=== PATIENT | female | born 1970 | race Caucasian/White ===

== ENCOUNTER → 2023-12-13 08:09 | Outpatient (REF) | payer OTHER, SELFPAY | LOC: WDC 08:09 | PROVIDERS: ATTENDING PHYSICIAN Nurse Practitioner | DX: Z12.31 Encounter for screening mammogram for malignant neoplasm of breast (principal) | CPT/HCPCS: 77063; 77067 ==

== ENCOUNTER → 2024-09-11 08:15 | Outpatient (REF) | payer OTHER, SELFPAY | LOC: HWRAD 08:15 | PROVIDERS: ATTENDING PHYSICIAN Nurse Practitioner Adult Health; FAMILY PHYSICIAN Internal Medicine; REFERRING PHYSICIAN Obstetrics & Gynecology | DX: N95.0 Postmenopausal bleeding (principal) | CPT/HCPCS: 76830; 76856 ==

== ENCOUNTER → 2025-02-04 15:25 | Outpatient (REF) | payer OTHER, SELFPAY | LOC: WDC 15:25 | PROVIDERS: ATTENDING PHYSICIAN Nurse Practitioner Adult Health; FAMILY PHYSICIAN Internal Medicine | DX: Z12.31 Encounter for screening mammogram for malignant neoplasm of breast (principal) | CPT/HCPCS: 77063; 77067 ==

== ENCOUNTER 2025-06-16 11:26 | Emergency (ER) | payer OTHER, SELFPAY ==
[2025-06-16 11:40] VITALS: BP 182/108
[2025-06-16 15:48] VITALS: BMI 35.0
--- NOTE | 2025-06-16 15:51 | ED.GENMED ---
History of Present Illness
General
Chief Complaint: Breathing Problem
Source: patient
Exam Limitations: none
Time Seen by Provider: 06/16/25 15:24
Nursing documentation reviewed up to this point in time: agreed with
History of Present Illness
History of Present Illness:
Patient is a 54-year-old female with history of pulmonary emboli on Eliquis who presents to the emergency department for evaluation of chest pressure. Patient states that a few days ago she woke up in middle the night and had a cramping sensation
in her left lateral calf. She initially thought this may be secondary to dehydration however symptoms seemed to persist and then patient developed a minor pressure sensation in her mid chest yesterday while driving up to see her daughter at [place].
She denied any radiation of chest pressure into her back, arm, jaw. She denied any clear exertional or pleuritic component to symptoms. No associated fever, productive cough. She does report recent viral URI which is improving. No
lightheadedness/dizziness or syncopal events.
Given her history she became concerned about a possible PE and doubled her Eliquis dose last night. By this morning, patient states her symptoms are improved and she denies any current chest tightness or pain in her left lower extremity.
However�she did contact her molder bench who recommended evaluation in the emergency department given history of multiple PE.
No recent travel or recent surgeries. No exogenous hormone use.
Past History
Past History
ED Past Medical History: None
ED Past Surgical History: (1999, 2002, 2005)
Patient has exhibited threatening behavior?: No
Social History
Tobacco: Non-smoker
Alcohol: None
Drug: None
Personal:
Living: with family
Employment: Other (currently interviewing for jobs since being home with kids)
Family History
Family History: Diabetes
Review of Systems
Review of Systems
Allergies reviewed?: Yes
All Other Systems: ROS reviewed and negative except as documented in HPI and ROS
Phy Exam
Physical Exam
Physical Exam:
Vitals: Hypertensive, otherwise vital signs normal. Afebrile
General: Patient is well appearing, no acute distress. Nontoxic appearing
Skin: Warm and dry, no rashes or lesions
Head: Normocephalic, atraumatic
Eyes: Sclera nonicteric.
Throat: Protecting airway
Neck: Normal ROM, no cervical spine tenderness, no meningismus
Cardiac: Regular rate and rhythm, no murmurs. No reproducible chest wall tenderness. 2+ palpable radial pulses bilaterally
Pulm: Normal respiratory effort, no wheezes, rales, rhonchi heard on exam
Abdomen: No abdominal tenderness.
Extremities: No tenderness, erythema, or warmth of lower extremity. No edema of bilateral lower extremities with negative Homans' sign. 2+ palpable DP pulses bilaterally
Neuro: AAOx3. Grossly intact
Psychiatric: Normal affect.
Scores
Heart Failure Risk
Heart Failure Risk Score: Not Applicable
Course
Orders/Labs/Results
Orders:
Orders
06/16/25 11:40
EKG [Electrocardiogram (*1)] Urgent
Reason for Study: Shortness of Breath
EKG- Treatment ONCE
06/16/25 15:50
Periph Venous Lwr Ext Left US [US Periph Venous LOWER Ext LT] Urgent
Comment: hx DVT
Reason For Exam: LLE cramping/pain
06/16/25 15:59
Complete Blood Count/With Diff Urgent
Comprehensive Metabolic Panel Urgent
D-Dimer Urgent
Troponin I Urgent
06/16/25 15:59
06/16/25 15:59
Vital Signs
Initial and Last Documented VS:
Initial Vital Signs
Temp Pulse Resp BP Pulse Ox
98.3 F 84 18 182/108 98
06/16/25 11:40 06/16/25 11:40 06/16/25 11:40 06/16/25 11:40 06/16/25 11:40
Last Documented Vital Signs
Temp Pulse Resp BP Pulse Ox
98.3 F 66 24 148/91 98
06/16/25 11:40 06/16/25 16:15 06/16/25 16:15 06/16/25 16:03 06/16/25 16:01
MDM/Problems Addressed
Differential Diagnosis Includes:
Not limited to: Viral URI, muscle strain, acute dehydration, DVT, pulmonary embolism, etc.
MDM/Problems Addressed:
54-year-old female with history of PE currently anticoagulated on Eliquis who presents with concern of cramping in left lower extremity as well as brief episode of chest tightness yesterday which has resolved. No associated fever, productive cough,
or infectious symptoms. Given history � sent by molder bench to rule out PE. Patient is hypertensive with otherwise stable viital signs on arrival. Physical exam as above.
Patient very well appearing, in no distress and nontoxic appearing. Heart regular rate and rhythm. Lungs are clear bilaterally. No clinical evidence of DVT on exam or other abnormality of left lower extremity. Left lower extremity neurovascularly
intact.
Differential as above. Low clinical suspicion for ACS. Do not suspect infectious process. Will check labs, EKG, troponin, LLE ultrasound to r./o DVT given patient history. Very low suspicion of PE however will check d-dimer.
Update: EKG reveals normal sinus rhythm without the acute ischemic changes or evidence of arrhythmia. Labs without any abnormalities. Troponin undetectable. D-dimer negative. Ultrasound without evidence of DVT.
Patient has been completely asymptomatic in emergency department. Do not suspect PE or other emergent cardiac/pulmonary process. Patient very comfortable with discharge home and will follow up with her primary care/molder bench. Close return
precautions discussed. Advised to continue Eliquis as prescribed.
Chronic conditions affecting care:
Pulmonary embolism on Eliquis
Acute Exacerbation and/or Progression of Chronic Illness:
N/A
*Radiology
Radiology exam reviewed: radiology read reviewed
*Pulse Oximetry
SaO2: 98
Oxygen Mode of Delivery: Room air
Patient hypoxic: no
*EKG
Interpreted by ED Provider?: Yes
EKG Intrepretation Date: 06/16/25
Interpretation: normal
Comparison EKG: no comparison EKG present
Heart Rate: 67
Rate: normal
Rhythm: sinus
[place]: normal axis
Interval: normal QT interval
QRS Pattern: normal QRS
Ischemia: no ischemia
*Railroad Mechanic Interpretation
Rate: Railroad Mechanic- N/A
*Critical Care Note
Total Time (30-74mins, 75-104mins- exclusive of procedures): Not Applicable
ED Attending Note
-
Portions of this chart may have been created with voice recognition software.� Occasional wrong word or��sound alike� substitutions may have occurred due to the inherent limitations of voice recognition software.
Discharge Plan
Departure
Patient Disposition: Home (Routine Discharge)
Date of Disposition: 06/16/25
Time of Disposition: 17:40
Patient with high blood pressure during this ER visit?: Yes
Discharge Problem:
Sensation of chest pressure, Cramps of left lower extremity
Instructions: Chest Pain (DC), BLOOD PRESSURE
Prescriptions:
No Action
axywnquptzam-Uj-adeh-minerals [Multiple Vitamin, Womens] 1 EACH tablet
1 tab PO DAILY
ascorbic acid (vitamin C) [Vitamin C] 500 MG tablet
500 mg PO DAILY
vitamin B complex 1 TAB tablet
1 tab PO DAILY
zinc gluconate 50 MG tablet
50 mg PO DAILY
apixaban [Eliquis] 2.5 MG tablet
2.5 mg PO BID
atorvastatin 10 MG tablet
10 mg PO QPM
omeprazole magnesium [Prilosec OTC] 20 MG tablet,delayed release (DR/EC)
20 mg PO DAILY
Iron
65 mg PO BID
oxycodone 5 MG tablet
5 - 10 mg PO Q4HPRN PRN (Reason: moderate to severe pain) Qty: 20 0RF
acetaminophen 325 MG tablet
650 mg PO Q4HWA 0RF
Referrals:
Jg Mckeon DO [Active, Hematology / Oncology] - Keep scheduled appt
Sajan Mendenhall MD [Family Provider, Internal Medicine] - Follow up in 5-7 days
Activity Restrictions/Additional Instructions:
RETURN TO THE EMERGENCY DEPARTMENT WITH ANY CHEST PAIN, SHORTNESS OF BREATH, PAIN OR SWELLING OF LOWER EXTREMITIES COUGH OR FEVER, WORSENING IN CURRENT SYMPTOMS, OR ANY OTHER CONCERNS
- As discussed that your lab work showed no acute abnormalities in the emergency department. Your ultrasound showed no evidence of a blood clot of your left lower leg.
- Continue to take your Eliquis as prescribed.
- It is important to stay well-hydrated
- Follow-up with primary care/molder bench for further evaluation/management and to ensure that your symptoms improve
Monitor your symptoms closely and return to the emergency department with any acute worsening/new symptoms or any other concerns
Interventions
Interventions:
*Risk Screen - Suicide Last Done: 06/16/25 15:55
*General Assessment Last Done: 06/16/25 15:55
*Neglect/Abuse Screening Last Done: 06/16/25 15:55
*ED- Fall Risk Assessment Last Done: 06/16/25 15:55
*ED COVID-19 Vaccine History Last Done: 06/16/25 15:55
*Nursing Disposition Last Done: 06/16/25 17:52
ED- Cardiac Assessment Last Done: 06/16/25 16:01
ED- Pulmonary Assessment Last Done: 06/16/25 16:01
Discharge Date and Time
Discharge Date/Time: 06/16/25 17:53
Print Language: LATVIAN
[2025-06-16 16:03] VITALS: BP 148/91
[2025-06-16 16:21] LABS: Hematocrit 41.2 % (37.0-47.0); Hemoglobin 14.4 g/dL (12.0-16.0); Mean Corp Hgb Conc. 35.0 g/dL (33.0-37.0); Mean Corpuscular Volume 87.5 fL (81.0-99.0); Nucleated Red Blood Cells % 0 %; Platelet Count 239 10^3/uL (130-400); Red Cell Dist. Width 12.9 % (11.5-14.5)
[2025-06-16 16:22] LABS: D-Dimer 0.32 ug/mlFEU (0.00-0.50)
[2025-06-16 16:25] LABS: ALT (SGPT) 34 U/L (0-35); AST (SGOT) 30 U/L (14-36); Albumin 4.5 g/dl (3.5-5.0); Alkaline Phosphatase 85 U/L (38-126); Blood Urea Nitrogen 10 mg/dl (7-17); Calcium 9.4 mg/dl (8.4-10.2); Carbon Dioxide 27 mmol/L (22-30); Chloride 106 mmol/L (98-107); Estimated Creatinine Clearance 93 ml/min; Glucose 90 mg/dl (70-99); Potassium 3.7 mmol/L (3.5-5.1); Sodium 138 mmol/L (135-145); Total Protein 7.1 g/dl (6.3-8.2); eGFR > 60.00
[2025-06-16 16:40] LABS: Troponin I < 0.012 ng/ml
== END 2025-06-16 17:53 | disposition home or self-care (01) ==
LOC: EMR 11:26
PROVIDERS: Physician Assistant; EMERGENCY PHYSICIAN Emergency Medicine; FAMILY PHYSICIAN Internal Medicine
DX: R07.89 Other chest pain (principal); R25.2 Cramp and spasm; I10 Essential (primary) hypertension; Z79.01 Long term (current) use of anticoagulants; Z83.3 Family history of diabetes mellitus; Z86.711 Personal history of pulmonary embolism; Z98.891 History of uterine scar from previous surgery
CPT/HCPCS: 99284; 80053; 84484; 85025; 85379; 93005; 93971

== ENCOUNTER 2025-07-24 06:42 | Outpatient (RCR) | payer OTHER, SELFPAY | END 2025-07-24 23:59 | disposition home or self-care (01) | LOC: RPT 06:42 | PROVIDERS: ATTENDING PHYSICIAN Obstetrics & Gynecology; FAMILY PHYSICIAN Internal Medicine | DX: N39.46 Mixed incontinence (principal); N81.11 Cystocele, midline; M62.89 Other specified disorders of muscle; R15.2 Fecal urgency; Z73.6 Limitation of activities due to disability | CPT/HCPCS: 97163; 97530 ==

== ENCOUNTER → 2025-07-30 11:23 | Outpatient (REF) | payer OTHER, SELFPAY | LOC: DHSLP 11:23 | PROVIDERS: ATTENDING PHYSICIAN Nurse Practitioner | DX: G47.33 Obstructive sleep apnea (adult) (pediatric) (principal) | CPT/HCPCS: 95800 ==

== ENCOUNTER 2025-08-07 06:23 | Day surgery (SDC) | payer OTHER, SELFPAY | END 2025-08-07 14:40 | disposition home or self-care (01) | LOC: GI 06:23 | PROVIDERS: ATTENDING PHYSICIAN Internal Medicine Gastroenterology | DX: Z12.11 Encounter for screening for malignant neoplasm of colon (principal); K64.8 Other hemorrhoids; K57.30 Diverticulosis of large intestine without perforation or abscess without bleeding; R12 Heartburn; K29.50 Unspecified chronic gastritis without bleeding; K31.89 Other diseases of stomach and duodenum; Z98.0 Intestinal bypass and anastomosis status; Z86.0100 Personal history of colon polyps, unspecified | CPT/HCPCS: 43239; G0105; 88305; 88342 ==

== ENCOUNTER 2025-08-25 09:25 | Outpatient (RCR) | payer OTHER, SELFPAY | END 2025-08-25 23:59 | disposition home or self-care (01) | LOC: RPT 09:25 | PROVIDERS: ATTENDING PHYSICIAN Obstetrics & Gynecology; FAMILY PHYSICIAN Internal Medicine | DX: N39.46 Mixed incontinence (principal); N81.11 Cystocele, midline; M62.89 Other specified disorders of muscle; R15.2 Fecal urgency; Z73.6 Limitation of activities due to disability; N39.3 Stress incontinence (female) (male); N81.6 Rectocele | CPT/HCPCS: 97014; 97110; 97112; 97140; 97530 ==

== ENCOUNTER 2025-10-01 07:14 | Outpatient (RCR) | payer OTHER, SELFPAY | END 2025-10-01 13:48 | disposition home or self-care (01) | LOC: RPT 07:14 | PROVIDERS: ATTENDING PHYSICIAN Obstetrics & Gynecology; FAMILY PHYSICIAN Internal Medicine | DX: N39.46 Mixed incontinence (principal); N81.11 Cystocele, midline; M62.89 Other specified disorders of muscle; R15.2 Fecal urgency; Z73.6 Limitation of activities due to disability; N39.3 Stress incontinence (female) (male); N81.6 Rectocele | CPT/HCPCS: 97014; 97110; 97112; 97140; 97530 ==